=== PATIENT | male | born 1930 | race Hispanic/Latino ===

== ENCOUNTER 2017-06-09 11:00 | Day surgery (SDC) | payer MEDICARE ==
[~2017-06-09 11:00] MED LIST: IOPIDINE ONE; MYDRIACYL ONE; NEOFRIN ONE
[2017-06-09] MEDS ORDERED: MYDRIACYL OS ONE (12:04)
[2017-06-09] MEDS ORDERED: NEOFRIN OS ONE (12:04)
[2017-06-09] MEDS ORDERED: IOPIDINE OS ONE (12:04)
[2017-06-09 14:55] VITALS: BP 132/70
== END 2017-06-09 11:01 | disposition home or self-care (01) ==
LOC: OR 11:00
PROVIDERS: ATTEND Specialist
DX: H26.492 Other secondary cataract, left eye (principal); M19.90 Unspecified osteoarthritis, unspecified site; E78.00 Pure hypercholesterolemia, unspecified; G47.30 Sleep apnea, unspecified; Z85.46 Personal history of malignant neoplasm of prostate; Z99.89 Dependence on other enabling machines and devices; Z95.5 Presence of coronary angioplasty implant and graft

== ENCOUNTER 2021-08-07 06:28 | Day surgery (SDC) | payer MEDICARE ==
[2021-08-07] MEDS ORDERED: SODIUM CHLORIDE 0.9% 1000 ML 1,000 ML ONE (07:13)
[2021-08-07] MEDS ORDERED: SODIUM CHLORIDE 0.9% 1000 ML 1,000 ML IV SCH (07:15)
[2021-08-07 07:23] LABS: Hematocrit 33.2 % (35.5-45.6); Mean Corpuscular HGB Conc 33 % (32-34); Mean Corpuscular Volume 93 fl (84-94); Platelet Count 217 K/mm3 (140-440); Red Blood Count 3.56 M/mm3 (3.65-5.03)
[2021-08-07 07:33] LABS: INR 0.97 (0.87-1.13)
[2021-08-07 07:36] LABS: BUN/Creatinine Ratio 17; Blood Urea Nitrogen 19 mg/dL (9-20); Calcium 9.5 mg/dL (8.4-10.2); Hemolysis Index 4
[2021-08-07] MEDS ORDERED: BENZOCAINE 20% TOP SPRAY 0.5 ML UNIT DOSE MM NR (08:00)
[2021-08-07] MEDS ORDERED: propofoL 200 MG/20 ML VIAL IV ONE ×3 (08:12)
[2021-08-07] MEDS ORDERED: LIDOCAINE MPF (2%) 20 MG/1 ML VIAL 5 ML ONE (08:13)
[2021-08-07] MEDS ORDERED: ePHEDrine SULFATE 50 MG/1 ML INJ ONE (08:13)
--- NOTE | 2021-08-07 08:56 | Anesthesia Day of Surgery ---
Anesthesia Day of Surgery - Day of Surgery Patient Examined: Yes Patient H&P Reviewed: Yes Patient is NPO: Yes
--- NOTE | 2021-08-07 08:56 | Anesthesia Consultation ---
Anesthesia Consult and Med Hx Date of service: 08/07/21 - Airway Anesthetic Teeth Evaluation: Edentulous ROM Head & Neck: Inadequate (restricted extension and flexion) Mental/Hyoid Distance: Adequate Mallampati Class: Class II Intubation Access Assessment: Possibly Difficult - Pulmonary Exam CTA: Yes - Cardiac Exam Cardiac Exam: RRR (grade 2/6 systolic murmur) - Pre-Operative Health Status ASA Pre-Surgery Classification: ASA3 Proposed Anesthetic Plan: MAC - Pulmonary Hx Smoking: No Hx Respiratory Symptoms: No - Cardiovascular System Hx Hypertension: No Hx Percutaneous Transluminal Coronary Angioplasty (PTCA): Yes (remote hx) Hx Cardia Arrhythmia: No Hx Pacemaker: No Hx Internal Defibrillator: No Hx Valvular Heart Disease: Yes (moderate ) - Central Nervous System CVA: Yes (hospitalized late May 27 syncopal episode concerning for TIA) - Endocrine Hx Renal Disease: No Hx Liver Disease: No Hx Insulin Dependent Diabetes: No Hx Non-Insulin Dependent Diabetes: No Hx Thyroid Disease: No - Additional Comments Anesthesia Medical History Comments: No hx anesthetic complications.
--- NOTE | 2021-08-07 10:07 | Short Stay Summary ---
Short Stay Documentation Date of service: 08/07/21 - History H&P: obtained from office - Allergies and Medications Current Medications: Allergies No Known Allergies Allergy (Verified 06/06/17 12:54) Home Medications Medication Instructions Recorded Confirmed Last Taken Type Clopidogrel Bisulfate [Clopidogrel] 75 mg PO DAILY 06/09/17 08/07/21 08/06/21 History Ezetimibe 10 mg PO DAILY 06/09/17 08/07/21 08/06/21 History Fenofibrate 160 mg PO DAILY 06/09/17 08/07/21 08/06/21 History ISOSORBIDE MONOnitrate [Imdur ER] 60 mg PO QDAY 06/09/17 08/07/21 08/06/21 History Pregabalin [Lyrica] 300 mg PO DAILY 06/09/17 08/07/21 08/06/21 History Simvastatin (Nf) [Zocor TAB] 20 mg PO QHS 06/09/17 08/07/21 08/06/21 History amLODIPine 5 mg PO DAILY 06/09/17 08/07/21 08/06/21 History atenoloL [Atenolol] 50 mg PO DAILY 06/09/17 08/07/21 08/06/21 History Active Medications Sodium Chloride (Nacl 0.9% 1000 Ml) 1,000 mls @ 42 mls/hr IV DIRECT MAYRA Stop: 08/07/21 23:59 - Brief post op/procedure progress note Date of procedure: 08/07/21 Pre-op diagnosis: cva Post-op diagnosis: same Procedure: see nina report Anesthesia: MAC Estimated blood loss: none Pathology: none - Disposition Condition at discharge: Good Disposition: 01 HOME / SELF CARE / HOMELESS - Discharge Diagnoses (1) CVA (cerebral vascular accident) Status: Chronic Qualifiers: Laterality of affected vessel: unspecified (2) Hypertension Status: Chronic Qualifiers: Hypertension type: primary hypertension Qualified Code(s): I10 - Essential (primary) hypertension (3) Hyperlipemia, mixed Status: Acute (4) CAD (coronary artery disease) Status: Chronic Qualifiers: Coronary Disease-Associated Artery/Lesion type: [place] artery Associated angina: with stable angina (5) Aortic stenosis, moderate Status: Chronic Short Stay Discharge Plan Activity: advance as tolerated Diet: low fat, low cholesterol, low salt Follow up with: TRUNG BRIDGES MD [Primary Care Provider] - 7 Days
--- NOTE | 2021-08-07 10:29 | Post Anesthesia Evaluation ---
- Post Anesthesia Evaluation Patient Participated: Yes Airway Patent: Yes Stable Respiratory Function: Yes Nausea/Vomiting: No Temp > 96.8F: Yes Pain Manageable: Yes Adequeate Hydration: Yes Anesthesia Complications: No
[2021-08-07 11:26] VITALS: BP 162/53
== END 2021-08-07 06:29 | disposition home or self-care (01) ==
LOC: CATHLABREC 06:28 → EDSTATUS 08:00
PROVIDERS: ATTEND Internal Medicine
DX: I63.89 Other cerebral infarction (principal); R55 Syncope and collapse; I35.0 Nonrheumatic aortic (valve) stenosis; I10 Essential (primary) hypertension; I34.0 Nonrheumatic mitral (valve) insufficiency; I25.10 Atherosclerotic heart disease of native coronary artery without angina pectoris; E78.2 Mixed hyperlipidemia; I70.0 Atherosclerosis of aorta; E78.00 Pure hypercholesterolemia, unspecified; G47.30 Sleep apnea, unspecified; M19.90 Unspecified osteoarthritis, unspecified site; Z72.89 Other problems related to lifestyle; Z20.822 Contact with and (suspected) exposure to COVID-19; Z79.899 Other long term (current) drug therapy; Z85.46 Personal history of malignant neoplasm of prostate; Z98.890 Other specified postprocedural states; Z86.73 Personal history of transient ischemic attack (TIA), and cerebral infarction without residual deficits
CPT/HCPCS: 36415; 80048; 85027; 85610; 93312; 93320; 93325; J2704; J7030; U0003; J3490